=== PATIENT | male | born 1960 | race African-American/Black ===

== ENCOUNTER → 2019-11-19 | Outpatient (CLI) | payer OTHER ==
[2019-11-19 15:40] LABS: INR 1.1 (<1.2); Prothrombin Time 11.2 sec (9.0-12.0)
[2019-11-19 15:46] LABS: Albumin 4.5 g/dL (3.5-5.0); Calcium 10.1 mg/dL (8.4-10.2); Potassium 3.9 mmol/L (3.5-5.1); Total Bilirubin 0.7 mg/dL (0.2-1.3); Total Protein 7.9 g/dL (6.3-8.2)
[2019-11-19 15:47] LABS: Basophils # (A) 0.1 k/uL (0-0.2); Basophils % (A) 1 %; Eosinophils # (A) 0.2 k/uL (0-0.7); Eosinophils % (A) 3 %; HCT 52.7 % (39.0-53.0); HGB 16.8 gm/dL (13.0-17.5); Lymphocytes # (A) 2.2 k/uL (1.0-4.8); Lymphocytes % (A) 27 %; MCH 27.2 pg (25.0-35.0); MCHC 31.9 g/dL (31.0-37.0); MCV 85.4 fL (80.0-100.0); Mean Platelet Volume 8.8; Monocytes # (A) 0.6 k/uL (0-1.0); Monocytes % (A) 8 %; Neutrophils # (A) 4.9 k/uL (1.3-7.7); Neutrophils % (A) 60 %; Platelet Count 203 k/uL (150-450); RBC 6.16 m/uL (4.30-5.90); RDW 13.8 % (11.5-15.5); WBC 8.2 k/uL (3.8-10.6)
[2019-11-19 19:18] LABS: Alpha Fetoprotein, Tumor Mkr <2.5 ng/mL (0.0-7.9)
== END | disposition home or self-care (01) ==
LOC: RADMRIMAIN 14:05
PROVIDERS: ATTEND Nurse Practitioner
DX: B18.2 Chronic viral hepatitis C (principal)
CPT/HCPCS: 80053; 82105; 85025; 85610; 87522

== ENCOUNTER 2020-03-29 23:20 | Emergency (ER) | payer OTHER ==
[2020-03-29 23:26] VITALS: TEMP 97.8
--- NOTE | 2020-03-30 00:25 | XR ---
EXAMINATION TYPE: XR hand complete RT DATE OF EXAM: 03/30/2020 COMPARISON: NONE HISTORY: Laceration TECHNIQUE: 3 views FINDINGS: Metacarpals are intact. I see no fracture nor dislocation. There is no evidence of a foreig n body. There is spurring at the first carpometacarpal joint. 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 No fracture seen. No evidence of a foreign body.
[2020-03-30] MEDS ORDERED: CEPHALEXIN 500 MG CAP PO STA (00:35)
[2020-03-30] MEDS ORDERED: CEPHALEXIN 500MG STARTER PACK 4 CAP BTL PO STA (00:35)
--- NOTE | 2020-03-30 00:35 | ED ---
Wound/Laceration HPI - General Chief Complaint: Wound/Laceration Stated Complaint: Rt hand laceration Time Seen by Provider: 03/29/20 23:28 Source: patient, RN notes reviewed, old records reviewed Mode of arrival: ambulatory Limitations: no limitations - History of Present Illness Initial Comments: This is a 59-year-old male DF for evaluation presents today for evaluation regards to right hand laceration. Patient was cleaning a dish and glasses his glasses that he was cleaning broke. Patient sustained laceration to right index finger. Minimal bleeding originally the bleeding is now controlled and wrapped. Patient states tetanus is up-to-date and otherwise has no other complaints or injury states he can move the finger freely without difficulty -: hour(s) Extremity Location: Right: Hand Place: home Patient Tetanus UTD: Yes Context: accidental Associated Symptoms: none - Related Data Allergies Allergy/AdvReac Type Severity Reaction Status Date / Time No Known Allergies Allergy Verified 03/29/20 23:26 Review of Systems ROS Statement: Those systems with pertinent positive or pertinent negative responses have been documented in the HPI. ROS Other: All systems not noted in ROS Statement are negative. Past Medical History Past Medical History: Hypertension History of Any Multi-Drug Resistant Organisms: None Reported Past Surgical History: No Surgical Hx Reported Past Psychological History: Anxiety, Depression Smoking Status: Current every day smoker Past Alcohol Use History: Occasional Past Drug Use History: Marijuana General Exam - General Exam Comments Initial Comments: 1.5 cm laceration to right index finger no evidence of tendon injury Limitations: no limitations General appearance: alert, in no apparent distress Head exam: Present: atraumatic, normocephalic, normal inspection Eye exam: Present: normal appearance, PERRL, EOMI. Absent: scleral icterus, conjunctival injection, periorbital swelling ENT exam: Present: normal exam, mucous membranes moist Neck exam: Present: normal inspection. Absent: tenderness, meningismus, lymphadenopathy Respiratory exam: Present: normal lung sounds bilaterally. Absent: respiratory distress, wheezes, rales, rhonchi, stridor Cardiovascular Exam: Present: regular rate, normal rhythm, normal heart sounds. Absent: systolic murmur, diastolic murmur, rubs, gallop, clicks GI/Abdominal exam: Present: soft, normal bowel sounds. Absent: distended, tenderness, guarding, rebound, rigid Extremities exam: Present: normal inspection, full ROM, normal capillary refill. Absent: tenderness, pedal edema, joint swelling, calf tenderness Back exam: Present: normal inspection Neurological exam: Present: alert, oriented X3, CN II-XII intact Psychiatric exam: Present: normal affect, normal mood Skin exam: Present: warm, dry, intact, normal color. Absent: rash Course Vital Signs 03/29/20 23:23 Temperature 97.8 F Pulse Rate 76 Respiratory 18 Rate Blood Pressure 146/99 O2 Sat by Pulse 98 Oximetry - Reevaluation(s) Reevaluation #1: 03/30/20 00:45 Medical record is reviewed Reevaluation #2: 03/30/20 00:45 Laceration is repaired without difficulty Reevaluation #3: 03/30/20 00:45 Patient has no complaints, questions are answered Procedures - Laceration Laceration #1 Consent Obtained: verbal consent Indication: laceration Site: hand, other (Right index finger) Description: linear Depth: simple, single layer Anesthetic Used: lidocaine 1% Type of Sutures: nylon Size of Sutures: 5-0 Technique: simple, interrupted Patient Tolerated Procedure: well Medical Decision Making - Medical Decision Making 59 male DF for evaluation of right index finger laceration no evidence of tendon laceration, patient has laceration is repaired, can be discharged home - Radiology Data Radiology results: report reviewed (X-ray right hand is negative for acute injury or foreign body), image reviewed Disposition Clinical Impression: Laceration, Laceration of right index finger Disposition: ADMITTED IP TO [facility] Condition: Good Instructions (If sedation given, give patient instructions): Care For Your Stitches (ED), Laceration (ED) Is patient prescribed a controlled substance at d/c from ED?: No Referrals: Karthikeyan Hernandez MD [Primary Care Provider] - 1-2 days
[2020-03-30 00:59] VITALS: BP 141/92; PULSE 77; RESP 19
== END 2020-03-30 00:48 | disposition other institution (70) ==
LOC: EC 23:20
DX: S61.210A Laceration without foreign body of right index finger without damage to nail, initial encounter (principal); I10 Essential (primary) hypertension; F17.200 Nicotine dependence, unspecified, uncomplicated; W25.XXXA Contact with sharp glass, initial encounter; Y93.G1 Activity, food preparation and clean up; Y92.009 Unspecified place in unspecified non-institutional (private) residence as the place of occurrence of the external cause
CPT/HCPCS: 12001; 99283

== ENCOUNTER → 2021-03-06 | Outpatient (CLI) | payer OTHER ==
--- NOTE | 2021-03-06 07:45 | US ---
EXAMINATION TYPE: US liver DATE OF EXAM: 03/06/2021 COMPARISON: NONE CLINICAL HISTORY: K74.60. Pt states chronic Hep C EXAM MEASUREMENTS: Liver Length: 17.4 cm Gallbladder Wall: 0.2 cm CBD: 0.3 cm Right Kidney: 10.8 x 4.3 x 4.9 cm Pancreas: wnl, tail obscured by overlying bowel gas Liver: wnl Gallbladder: gallstone at dependent portion/fundus Evidence for sonographic Dudley's sign: No CBD: wnl Right Kidney: wnl Visualized pancreas within normal limits. Visualized liver shows no worrisome mass or ductal dilatati on. No surrounding ascites. Single mobile shadowing gallstone is present. No right-sided hydronephros is. IMPRESSION: No worrisome focal intrahepatic mass or intrahepatic ductal dilatation.
[2021-03-06 08:23] LABS: Basophils % (A) 1 %; Eosinophils # (A) 0.2 k/uL (0-0.7); Eosinophils % (A) 2 %; HCT 45.4 % (39.0-53.0); HGB 14.8 gm/dL (13.0-17.5); Lymphocytes # (A) 1.8 k/uL (1.0-4.8); Lymphocytes % (A) 29 %; MCH 27.9 pg (25.0-35.0); MCHC 32.5 g/dL (31.0-37.0); MCV 85.8 fL (80.0-100.0); Mean Platelet Volume 8.3; Monocytes # (A) 0.4 k/uL (0-1.0); Monocytes % (A) 7 %; Neutrophils # (A) 3.7 k/uL (1.3-7.7); Neutrophils % (A) 59 %; Platelet Count 204 k/uL (150-450); RBC 5.29 m/uL (4.30-5.90); RDW 13.5 % (11.5-15.5); WBC 6.3 k/uL (3.8-10.6)
[2021-03-06 08:39] LABS: Albumin 4.2 g/dL (3.5-5.0); Calcium 9.8 mg/dL (8.4-10.2); Potassium 4.3 mmol/L (3.5-5.1); Total Bilirubin 0.6 mg/dL (0.2-1.3); Total Protein 7.7 g/dL (6.3-8.2)
== END | disposition home or self-care (01) ==
LOC: RADUSWWP 07:08
PROVIDERS: ATTEND Internal Medicine Gastroenterology
DX: B18.2 Chronic viral hepatitis C (principal); K74.60 Unspecified cirrhosis of liver
CPT/HCPCS: 76705; 80053; 82105; 82677; 84702; 85025; 86336; 87522

== ENCOUNTER 2021-08-15 05:48 | Inpatient (IN) | payer MEDICAID, OTHER ==
[2021-08-15 06:49] LABS: Basophils # (A) 0.1 k/uL (0-0.2); Basophils % (A) 1 %; Eosinophils # (A) 0.2 k/uL (0-0.7); Eosinophils % (A) 4 %; HCT 43.5 % (39.0-53.0); HGB 13.4 gm/dL (13.0-17.5); Lymphocytes # (A) 1.8 k/uL (1.0-4.8); Lymphocytes % (A) 34 %; MCH 26.1 pg (25.0-35.0); MCHC 30.7 g/dL (31.0-37.0); MCV 84.9 fL (80.0-100.0); Monocytes # (A) 0.4 k/uL (0-1.0); Monocytes % (A) 7 %; Neutrophils # (A) 2.7 k/uL (1.3-7.7); Neutrophils % (A) 51 %; Platelet Count 177 k/uL (150-450); RBC 5.12 m/uL (4.30-5.90); RDW 13.9 % (11.5-15.5); WBC 5.3 k/uL (3.8-10.6)
[2021-08-15 07:27] LABS: Amphetamine Screen,Urine Not Detected (NotDetected); Barbiturate Screen,Urine Not Detected (NotDetected); Benzodiazepines Screen,Urine Not Detected (NotDetected); Cocaine Screen,Urine Not Detected (NotDetected); Methadone Screen, Urine Not Detected (NotDetected); Opiate Screen,Urine Not Detected (NotDetected); Oxycodone Screen, Urine Not Detected (NotDetected); Phencyclidine Screen,Urine Not Detected (NotDetected); Tricyclic Antidepressant,Urine Not Detected (NotDetected); Urn Cannabinoid Scrn Detected (NotDetected)
[2021-08-15 07:46] LABS: ALT 60 U/L (4-49); AST 41 U/L (17-59); African American GFR (CKD) 69 (>60 ml/min/1.73 sqM); Albumin 4.3 g/dL (3.5-5.0); Alcohol <10 mg/dL; Alkaline Phosphatase 120 U/L (38-126); Anion Gap 8 mmol/L; Blood Urea Nitrogen 17 mg/dL (9-20); Calcium 9.1 mg/dL (8.4-10.2); Carbon Dioxide 24 mmol/L (22-30); Chloride 103 mmol/L (98-107); Glucose 119 mg/dL (74-99); Non-African American GFR(CKD) 60 (>60 ml/min/1.73 sqM); Potassium 3.5 mmol/L (3.5-5.1); Sodium 135 mmol/L (137-145); Total Bilirubin 0.4 mg/dL (0.2-1.3); Total Protein 7.3 g/dL (6.3-8.2)
--- NOTE | 2021-08-15 08:36 | ED ---
Psych HPI - General Chief Complaint: Psychiatric Symptoms Stated Complaint: mental health Time Seen by Provider: 08/15/21 06:18 Source: patient, family, RN notes reviewed, old records reviewed Mode of arrival: ambulatory Limitations: no limitations - History of Present Illness Initial Comments: Patient is a 60-year-old male with history of hypertension, hyperlipidemia, chronic back pain, presenting to the emergency Department or a psychiatric evaluation. Patient states he feels like "the world would be better without him." Patient took 4 Suboxone and was about to take a handful of Valium but his stopped him. Patient states he has been under a lot of stress for the past month. Patient has a few superficial cuts on his wrist. No active bleeding. Patient denies any other complaints this chest pain or shortness of breath, no abdominal pain. Patient does drink occasional alcohol, admits to marijuana use, no other drug use. Patient's no further complaints. - Related Data Home Medications Medication Instructions Recorded Confirmed Ascorbic Acid [Vitamin C] 500 mg PO DAILY 08/15/21 08/15/21 Atorvastatin [Lipitor] 10 mg PO DAILY 08/15/21 08/15/21 Cholecalciferol [Vitamin D3 (25 50 mcg PO DAILY 08/15/21 08/15/21 Mcg = 1000 Iu)] DULoxetine HCL [Cymbalta] 60 mg PO DAILY 08/15/21 08/15/21 Gabapentin [Neurontin] 400 mg PO TID 08/15/21 08/15/21 Meloxicam 15 mg PO DAILY 08/15/21 08/15/21 Pantoprazole [Protonix] 40 mg PO DAILY 08/15/21 08/15/21 Tadalafil [Cialis] 20 mg PO DAILY 08/15/21 08/15/21 Valsartan/Hydrochlorothiazide 1 tab PO DAILY 08/15/21 08/15/21 [Valsartan-Hctz 160-25 mg Tab] Zinc Gluconate [Zinc] 50 mg PO DAILY 08/15/21 08/15/21 amLODIPine [Norvasc] 10 mg PO DAILY 08/15/21 08/15/21 atenoloL [Tenormin] 25 mg PO DAILY 08/15/21 08/15/21 methocarbamoL [Methocarbamol] 500 mg PO BID 08/15/21 08/15/21 Allergies Allergy/AdvReac Type Severity Reaction Status Date / Time No Known Allergies Allergy Verified 08/15/21 11:13 Review of Systems ROS Statement: Those systems with pertinent positive or pertinent negative responses have been documented in the HPI. ROS Other: All systems not noted in ROS Statement are negative. Past Medical History Past Medical History: Hypertension Additional Past Medical History / Comment(s): chronic back pain History of Any Multi-Drug Resistant Organisms: None Reported Past Surgical History: No Surgical Hx Reported Past Psychological History: Anxiety, Depression Smoking Status: Current every day smoker Past Alcohol Use History: Occasional Past Drug Use History: Marijuana General Exam - General Exam Comments Initial Comments: GENERAL: Patient is well-developed and well-nourished. Patient is nontoxic and in no acute distress, teary-eyed on exam. HEAD: Atraumatic, normocephalic. EYES: Pupils equal round and reactive to light, extraocular movements intact, sclera anicteric, conjunctiva are normal. Eyelids were unremarkable. ENT: Nares patent, oropharynx clear without exudates. Moist mucous membranes. NECK: Normal range of motion, supple without lymphadenopathy or JVD. LUNGS: Unlabored respirations. Breath sounds clear to auscultation bilaterally and equ al. No wheezes rales or rhonchi. HEART: Regular rate and rhythm without murmurs, rubs or gallops. ABDOMEN: Soft, nontender, normoactive bowel sounds. No guarding, no rebound. No masses appreciated. MUSCULOSKELETAL: Normal extremities with adequate strength and normal range of motion, no pitting or edema. No clubbing or cyanosis. NEUROLOGICAL: Patient is alert and oriented x 3. Symmetrical smile. Normal speech, normal gait. PSYCH: Patient is teary-eyed on exam, seems depressed, suicidal. SKIN: Warm, Dry, normal turgor, no rashes or lesions noted. Limitations: no limitations Course Vital Signs 08/15/21 06:01 Temperature 98.3 F Pulse Rate 77 Respiratory 20 Rate Blood Pressure 147/92 O2 Sat by Pulse 95 Oximetry Medical Decision Making - Medical Decision Making Patient is a 60-year-old male here for psychiatric evaluation. He took 4 Suboxone this morning and was going to take a handful of Valium before his stopped him. He is having suicidal thoughts. Patient will be evaluated by psych. Patient will be admitted to inpatient psych. Patient aware, EPS nurse did petition the patient. - Lab Data Result diagrams: 08/15/21 06:37 08/15/21 06:37 Lab Results 08/15/21 08/15/21 08/15/21 Range/Units 06:37 06:37 06:37 WBC 5.3 (3.8-10.6) k/uL RBC 5.12 (4.30-5.90) m/uL Hgb 13.4 (13.0-17.5) gm/dL Hct 43.5 (39.0-53.0) % MCV 84.9 (80.0-100.0) fL MCH 26.1 (25.0-35.0) pg MCHC 30.7 L (31.0-37.0) g/dL RDW 13.9 (11.5-15.5) % Plt Count 177 (150-450) k/uL MPV 8.0 Neutrophils % 51 % Lymphocytes % 34 % Monocytes % 7 % Eosinophils % 4 % Basophils % 1 % Neutrophils # 2.7 (1.3-7.7) k/uL Lymphocytes # 1.8 (1.0-4.8) k/uL Monocytes # 0.4 (0-1.0) k/uL Eosinophils # 0.2 (0-0.7) k/uL Basophils # 0.1 (0-0.2) k/uL Sodium 135 L (137-145) mmol/L Potassium 3.5 (3.5-5.1) mmol/L Chloride 103 (98-107) mmol/L Carbon Dioxide 24 (22-30) mmol/L Anion Gap 8 mmol/L BUN 17 (9-20) mg/dL Creatinine 1.31 H (0.66-1.25) mg/dL Est GFR (CKD-EPI)AfAm 69 (>60 ml/min/1.73 sqM) Est GFR (CKD-EPI)NonAf 60 (>60 ml/min/1.73 sqM) Glucose 119 H (74-99) mg/dL Calcium 9.1 (8.4-10.2) mg/dL Total Bilirubin 0.4 (0.2-1.3) mg/dL AST 41 (17-59) U/L ALT 60 H (4-49) U/L Alkaline Phosphatase 120 (38-126) U/L Total Protein 7.3 (6.3-8.2) g/dL Albumin 4.3 (3.5-5.0) g/dL Urine Opiates Screen Not Detected (NotDetected) Ur Oxycodone Screen Not Detected (NotDetected) Urine Methadone Screen Not Detected (NotDetected) Ur Propoxyphene Screen Not Detected (NotDetected) Ur Barbiturates Screen Not Detected (NotDetected) U Tricyclic Antidepress Not Detected (NotDetected) Ur Phencyclidine Scrn Not Detected (NotDetected) Ur Amphetamines Screen Not Detected (NotDetected) U Methamphetamines Scrn Detected H (NotDetected) U Benzodiazepines Scrn Not Detected (NotDetected) Urine Cocaine Screen Not Detected (NotDetected) U Marijuana (THC) Screen Detected H (NotDetected) Serum Alcohol <10 mg/dL Disposition Clinical Impression: Depression Disposition: TRANSFER TO PSYCH HOSP/UNIT Condition: Stable Referrals: Karthikeyan Hernandez MD [Primary Care Provider] - 1-2 days Decision Date: 08/15/21 Decision Time: 14:55
[2021-08-15] MEDS ORDERED: HALOPERIDOL LACTATE 5 MG/ML 1 ML VIAL IM PRN (18:33)
[2021-08-15] MEDS ORDERED: ACETAMINOPHEN TAB 325 MG TAB PO PRN (18:33)
[2021-08-15] MEDS ORDERED: MAG HYDROX/AL HYDROX/SIMETH 30 ML CUP PO PRN (18:33)
[2021-08-15] MEDS ORDERED: MAGNESIUM HYDROXIDE 2,400 MG/10 ML CUP PO PRN (18:33)
[2021-08-15] MEDS: methocarbamoL 500 MG TAB PO SCH (21:09)
[2021-08-15] MEDS: GABAPENTIN 400 MG CAP PO SCH (21:09)
[2021-08-16] MEDS: NICOTINE 14MG/24HR PATCH TRANSDERM SCH (08:19)
[2021-08-16] MEDS: ZINC SULFATE 220 MG CAP PO SCH (08:20)
[2021-08-16] MEDS: CHOLECALCIFEROL 25 MCG (1000 IU) TABLET PO SCH (08:20)
[2021-08-16] MEDS: amLODIPine 10 MG TAB PO SCH (08:20)
[2021-08-16] MEDS: atenoloL 25 MG TAB PO SCH (08:20)
[2021-08-16] MEDS: MELOXICAM 7.5 MG TAB PO SCH (08:20)
[2021-08-16] MEDS: ASCORBIC ACID 500 MG TAB PO SCH (08:20)
[2021-08-16] MEDS: ATORVASTATIN 10 MG TAB PO SCH (08:20)
[2021-08-16] MEDS: methocarbamoL 500 MG TAB PO SCH ×2 (08:20→20:54)
[2021-08-16] MEDS: VALSARTAN 160 MG TAB PO SCH (08:20)
[2021-08-16] MEDS: PANTOPRAZOLE 40 MG TABLET PO SCH (08:20)
[2021-08-16] MEDS: GABAPENTIN 400 MG CAP PO SCH ×3 (08:21→20:54)
[2021-08-16] MEDS: hydroCHLOROthiazide 25 MG TAB PO SCH (08:21)
[2021-08-16 08:33] LABS: Basophils % (A) 0 %; Eosinophils # (A) 0.2 k/uL (0-0.7); Eosinophils % (A) 4 %; HCT 45.5 % (39.0-53.0); HGB 14.5 gm/dL (13.0-17.5); Lymphocytes # (A) 2.1 k/uL (1.0-4.8); Lymphocytes % (A) 37 %; MCH 27.1 pg (25.0-35.0); MCHC 31.9 g/dL (31.0-37.0); Mean Platelet Volume 8.2; Monocytes # (A) 0.3 k/uL (0-1.0); Monocytes % (A) 6 %; Neutrophils # (A) 2.8 k/uL (1.3-7.7); Neutrophils % (A) 50 %; Platelet Count 182 k/uL (150-450); RBC 5.36 m/uL (4.30-5.90); RDW 14.1 % (11.5-15.5); WBC 5.7 k/uL (3.8-10.6)
[2021-08-16 08:45] LABS: ALT 51 U/L (4-49); AST 33 U/L (17-59); African American GFR (CKD) 76 (>60 ml/min/1.73 sqM); Albumin 4.3 g/dL (3.5-5.0); Alkaline Phosphatase 133 U/L (38-126); Anion Gap 6 mmol/L; Bilirubin,Unconjugated 0.8 mg/dL (0.0-1.1); Blood Urea Nitrogen 14 mg/dL (9-20); Calcium 9.5 mg/dL (8.4-10.2); Carbon Dioxide 28 mmol/L (22-30); Chloride 104 mmol/L (98-107); Glucose 94 mg/dL (74-99); Non-African American GFR(CKD) 66 (>60 ml/min/1.73 sqM); Potassium 4.3 mmol/L (3.5-5.1); Sodium 138 mmol/L (137-145); Total Bilirubin 0.8 mg/dL (0.2-1.3); Total Protein 7.4 g/dL (6.3-8.2)
[2021-08-16] MEDS ORDERED: NON FORMULARY DRUG (Valsartan/Hydrochlorothiazide [Valsartan-Hctz 160-25 Mg Tab] 1 EACH Ta PO SCH (09:00)
[2021-08-16] MEDS ORDERED: DULoxetine HCL 60 MG CAPSULE.DR PO SCH (09:00)
[2021-08-16] MEDS: TADALAFIL 20 MG PO SCH (09:10)
--- NOTE | 2021-08-16 11:13 | P.MDCNMH ---
History of Present Illness H&P Date: 08/16/21 HISTORY OF PRESENT ILLNESS This is a 60-year-old male patient of Dr. Hernandez with past medical history of hypertension hyperlipidemia, chronic back pain, depression and generalized anxiety disorder, gastroesophageal reflux disease. 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 He took some medications that he was about to take some more and his intervened and called 911 and patient was brought into [facility] emergency center for evaluation. He has never been on a mental health unit in the past. He does have a history of depression but no suicidal ideation in the past and follows with [facility]. Patient was found to be afebrile, heart rate 77, blood pressure 147/92, pulse ox 95% on room air. CBC was unremarkable. Sodium 135 and creatinine 1.31 otherwise electrolytes were normal. Glucose 119. Patient does not have a history of diabetes. ALT 60 otherwise liver function tests were all within normal limits. TSH 2.66. Urinalysis was positive for methamphetamines and marijuana. Rotavirus PCR not detected. Patient admits that he smokes marijuana but denies any other drug use. REVIEW OF SYSTEMS Constitutional: No fever, no chills, no night sweats. No weight change. No weakness, fatigue or lethargy. No daytime sleepiness. EENT: No headache. No blurred vision or double vision, no loss of vision. No loss of Hearing, no ringing in the ears, no dizziness. No nasal drainage or congestion. No epistaxis. No sore throat. Lungs: No shortness of breath, cough, no sputum production. No wheezing. Cardiovascular: No chest pain, no lower extremity edema. No palpitations. No paroxysmal nocturnal dyspnea. No orthopnea. No lightheadedness or dizziness. No syncopal episodes. Abdominal: No abdominal pain. No nausea, vomiting. No diarrhea. No constipation. No bloody or tarry stools. No loss of appetite. Genitourinary: No dysuria, increased frequency, urgency. No urinary retention. Musculoskeletal: No myalgias. No muscle weakness, no gait dysfunction, no frequent falls. No back pain. No neck pain. Integumentary: No wounds, no lesions. No rash or pruritus. No unusual bruising. No change in hair or nails. Neurologic: No aphasia. No facial droop. No change in mentation. No head injury. No headache. No paralysis. No paresthesia. Psychiatric: Reports depression. No anxiety. No mood swings. Endocrine: No abnormal blood sugars. No weight change. No excessive sweating or thirst. No cold intolerance. SOCIAL HISTORY Patient is a smoker of one pack per day for 35 years. He states he drinks al cohol 2-3 times per week. He smokes marijuana "every chance that he gets." FAMILY HISTORY Mother at age 58 with history of breast cancer and CVA. Father is but he does not know his father. Patient has 6/2 brothers and sisters and does not know their medical history and is not in contact with them. He has one 20-year-old child with no major medical problems. His is currently . PHYSICAL EXAMINATION Gen: This is a 60-year-old black male appears to be in no acute distress. HEENT: Head is atraumatic, normocephalic. Pupils equal, round. Sclerae is anicteric. NECK: Supple. No JVD. No lymphadenopathy. No thyromegaly. LUNGS: Clear to auscultation. No wheezes or rhonchi. No intercostal retractions. HEART: Regular rate and rhythm. No murmur. ABDOMEN: Soft. Bowel sounds are present. No masses. No tenderness. EXTREMITIES: No pedal edema. No calf tenderness. NEUROLOGICAL: Patient is awake, alert and oriented x3. Cranial nerves 2 through 12 are grossly intact. ASSESSMENT AND PLAN 1. Depression with suicidal ideation and plan. Patient admitted to the mental health unit, continue current plan per psychiatry. 2. Hypertension. Continue amlodipine 10 mg daily, atenolol 25 mg daily, hydrochlorothiazide 25 mg daily, valsartan 160 mg daily. Monitor blood pressure closely, adjustments may need to be made. 3. Hyperlipidemia. Continue atorvastatin 10 mg daily. 4. Chronic back pain. Continue Tylenol as needed. 5. Gastroesophageal reflux disease. Continue Protonix 40 mg daily. 6. Tobacco use and dependence. Nicotine patch. DISCHARGE PLAN Home. Impression and plan of care have been directed as dictated by the signing physician. Desiree Cortés nurse practitioner acting as scribe for signing physician. Past Medical History Past Medical History: Hypertension Additional Past Medical History / Comment(s): chronic back pain History of Any Multi-Drug Resistant Organisms: None Reported Past Surgical History: No Surgical Hx Reported Past Psychological History: Anxiety, Depression Smoking Status: Current every day smoker Past Alcohol Use History: Occasional Past Drug Use History: Marijuana Medications and Allergies Home Medications Medication Instructions Recorded Confirmed Type Ascorbic Acid [Vitamin C] 500 mg PO DAILY 08/15/21 08/15/21 History Atorvastatin [Lipitor] 10 mg PO DAILY 08/15/21 08/15/21 History Cholecalciferol [Vitamin D3 (25 50 mcg PO DAILY 08/15/21 08/15/21 History Mcg = 1000 Iu)] DULoxetine HCL [Cymbalta] 60 mg PO DAILY 08/15/21 08/15/21 History Gabapentin [Neurontin] 400 mg PO TID 08/15/21 08/15/21 History Meloxicam 15 mg PO DAILY 08/15/21 08/15/21 History Pantoprazole [Protonix] 40 mg PO DAILY 08/15/21 08/15/21 History Tadalafil [Cialis] 20 mg PO DAILY 08/15/21 08/15/21 History Valsartan/Hydrochlorothiazide 1 tab PO DAILY 08/15/21 08/15/21 History [Valsartan-Hctz 160-25 mg Tab] Zinc Gluconate [Zinc] 50 mg PO DAILY 08/15/21 08/15/21 History amLODIPine [Norvasc] 10 mg PO DAILY 08/15/21 08/15/21 History atenoloL [Tenormin] 25 mg PO DAILY 08/15/21 08/15/21 History methocarbamoL [Methocarbamol] 500 mg PO BID 08/15/21 08/15/21 History Allergies Allergy/AdvReac Type Severity Reaction Status Date / Time No Known Allergies Allergy Verified 08/15/21 11:13 Physical Exam Vitals: Vital Signs Temp Pulse Pulse Resp BP BP Pulse Ox 08/16/21 06:57 97.4 F L 70 18 152/90 08/15/21 18:54 98.1 F 79 20 135/85 08/15/21 18:39 97.8 F 74 20 146/78 97 Cranial Nerve Examination - Cranial Nerves Cranial Nerve I- Olfactory: Intact Cranial Nerve II- Optic: Intact Cranial Nerve III- Oculomotor: Intact Cranial Nerve IV- Trochlear: Intact Cranial Nerve V- Trigeminal: Intact Cranial Nerve - Abducens: Intact Cranial Nerve VII- Facial: Intact Cranial Nerve VIII- Auditory: Intact Cranial Nerve IX- Glossopharyngeal: Intact Cranial Nerve X- Vagus: Intact Cranial Nerve XI- Accessory: Intact Cranial Nerve XII- Hypoglossal: Intact Results CBC & Chem 7: 08/16/21 07:38 08/16/21 07:38
[2021-08-16 11:21] LABS: Appearance,Urine Clear (Clear); Bilirubin,Urine Negative (Negative); Blood,Urine Negative (Negative); Color,Urine Yellow; Glucose,Urine (UA) Negative (Negative); Ketones,Urine Negative (Negative); Leukocyte Esterase,Urine Moderate (Negative); Mucus,Urine Occasional /hpf; Nitrite,Urine Negative (Negative); PH, Urine 6.5 (5.0-8.0); Protein,Urine 1+ (Negative); RBC,Urine 8 /hpf (0-5); Specific Gravity,Urine 1.023 (1.001-1.035); Squamous Epithelial Cell,Urine <1 /hpf (0-4); WBC,Urine 25 /hpf (0-5)
[2021-08-16] MEDS ORDERED: traZODone HCL 50 MG TAB PO PRN (11:44)
--- NOTE | 2021-08-16 13:04 | P.HP ---
Psychiatric H&P - . H&P Date: 08/16/21 History & Physical: Allergies Allergy/AdvReac Type Severity Reaction Status Date / Time No Known Allergies Allergy Verified 08/15/21 11:13 Vital Signs Temp 97.4 F L 08/16/21 06:57 Pulse 70 08/16/21 06:57 Resp 18 08/16/21 06:57 BP 152/90 08/16/21 06:57 Pulse Ox 97 08/15/21 18:39 FiO2 Laboratory Last Values WBC 5.7 k/uL (3.8-10.6) 08/16/21 07:38 RBC 5.36 m/uL (4.30-5.90) 08/16/21 07:38 Hgb 14.5 gm/dL (13.0-17.5) 08/16/21 07:38 Hct 45.5 % (39.0-53.0) 08/16/21 07:38 MCV 85.0 fL (80.0-100.0) 08/16/21 07:38 MCH 27.1 pg (25.0-35.0) 08/16/21 07:38 MCHC 31.9 g/dL (31.0-37.0) 08/16/21 07:38 RDW 14.1 % (11.5-15.5) 08/16/21 07:38 Plt Count 182 k/uL (150-450) 08/16/21 07:38 MPV 8.2 08/16/21 07:38 Neutrophils % 50 % 08/16/21 07:38 Lymphocytes % 37 % 08/16/21 07:38 Monocytes % 6 % 08/16/21 07:38 Eosinophils % 4 % 08/16/21 07:38 Basophils % 0 % 08/16/21 07:38 Neutrophils # 2.8 k/uL (1.3-7.7) 08/16/21 07:38 Lymphocytes # 2.1 k/uL (1.0-4.8) 08/16/21 07:38 Monocytes # 0.3 k/uL (0-1.0) 08/16/21 07:38 Eosinophils # 0.2 k/uL (0-0.7) 08/16/21 07:38 Basophils # 0.0 k/uL (0-0.2) 08/16/21 07:38 Sodium 138 mmol/L (137-145) 08/16/21 07:38 Potassium 4.3 mmol/L (3.5-5.1) 08/16/21 07:38 Chloride 104 mmol/L (98-107) 08/16/21 07:38 Carbon Dioxide 28 mmol/L (22-30) 08/16/21 07:38 Anion Gap 6 mmol/L 08/16/21 07:38 BUN 14 mg/dL (9-20) 08/16/21 07:38 Creatinine 1.21 mg/dL (0.66-1.25) 08/16/21 07:38 Est GFR (CKD-EPI)AfAm 76 (>60 ml/min/1.73 sqM) 08/16/21 07:38 Est GFR (CKD-EPI)NonAf 66 (>60 ml/min/1.73 sqM) 08/16/21 07:38 Glucose 94 mg/dL (74-99) 08/16/21 07:38 Calcium 9.5 mg/dL (8.4-10.2) 08/16/21 07:38 Total Bilirubin 0.8 mg/dL (0.2-1.3) 08/16/21 07:38 Conjugated Bilirubin 0.0 mg/dL (0.0-0.3) 08/16/21 07:38 Unconjugated Bilirubin 0.8 mg/dL (0.0-1.1) 08/16/21 07:38 Delta Bilirubin 0.0 mg/dL (0.0-0.2) 08/16/21 07:38 AST 33 U/L (17-59) 08/16/21 07:38 ALT 51 U/L (4-49) H 08/16/21 07:38 Alkaline Phosphatase 133 U/L (38-126) H 08/16/21 07:38 Total Protein 7.4 g/dL (6.3-8.2) 08/16/21 07:38 Albumin 4.3 g/dL (3.5-5.0) 08/16/21 07:38 TSH 2.660 mIU/L (0.465-4.680) 08/16/21 07:38 Urine Color Yellow 08/16/21 10:55 Urine Appearance Clear (Clear) 08/16/21 10:55 Urine pH 6.5 (5.0-8.0) 08/16/21 10:55 Ur Specific [place] 1.023 (1.001-1.035) 08/16/21 10:55 Urine Protein 1+ (Negative) H 08/16/21 10:55 Urine Glucose (UA) Negative (Negative) 08/16/21 10:55 Urine Ketones Negative (Negative) 08/16/21 10:55 Urine Blood Negative (Negative) 08/16/21 10:55 Urine Nitrite Negative (Negative) 08/16/21 10:55 Urine Bilirubin Negative (Negative) 08/16/21 10:55 Urine Urobilinogen 3.0 mg/dL (<2.0) 08/16/21 10:55 Ur Leukocyte Esterase Moderate (Negative) H 08/16/21 10:55 Urine RBC 8 /hpf (0-5) H 08/16/21 10:55 Urine WBC 25 /hpf (0-5) H 08/16/21 10:55 Ur Squamous Epith Cells <1 /hpf (0-4) 08/16/21 10:55 Urine Mucus Occasional /hpf (None) H 08/16/21 10:55 Urine Opiates Screen Not Detected (NotDetected) 08/15/21 06:37 Ur Oxycodone Screen Not Detected (NotDetected) 08/15/21 06:37 Urine Methadone Screen Not Detected (NotDetected) 08/15/21 06:37 Ur Propoxyphene Screen Not Detected (NotDetected) 08/15/21 06:37 Ur Barbiturates Screen Not Detected (NotDetected) 08/15/21 06:37 U Tricyclic Antidepress Not Detected (NotDetected) 08/15/21 06:37 Ur Phencyclidine Scrn Not Detected (NotDetected) 08/15/21 06:37 Ur Amphetamines Screen Not Detected (NotDetected) 08/15/21 06:37 U Methamphetamines Scrn Detected (NotDetected) H 08/15/21 06:37 U Benzodiazepines Scrn Not Detected (NotDetected) 08/15/21 06:37 Urine Cocaine Screen Not Detected (NotDetected) 08/15/21 06:37 U Marijuana (THC) Screen Detected (NotDetected) H 08/15/21 06:37 Serum Alcohol <10 mg/dL 08/15/21 06:37 Coronavirus (PCR) Not Detected (Not Detectd) 08/15/21 14:43 08/16/21 11:29 IDENTIFYING DATA: Patient is a 60-year-old male, who currently lives with his and 1 daughter in an apartment. He collects SSD. HPI: Patient presented to the hospital yesterday for a psychiatric evaluation. Patient claims that he has been having increase in his depression and suicidal ideation lately when he came into the ER. He has stated that he took 3 Suboxone films and overdose attempt and also had a handful of Valium to overdose on however his stopped him. He states that he's been having a lot of stress lately. Patient was admitted to the mental health unit on a petition and certificate. The decision was filled out by the EPS nurse. Patient was seen by sports book writer today and was agreeable to speak in the office. Patient is attempting to cooperate and appeared to have a depressed affect. He states that he was feeling depressed" stressed out" lately. His UDS was positive for methamphetamine and THC. Patient claims that "a lot of stuff has been happening to me" and claims that his is now . He states that "have to leave her for a bit" and states that [facility] more than a year. He states that his sentencing is coming up in August and he is being charged for drug related charges. He claims that he has been also dealing with health and pain issues. He claims that he did try to kill himself and he wanted to "go to sleep and not wake up". He claims that he has been having fair sleep however poor appetite. He is endorsing depression at this time and anxiety. Patient denies any suicidal or homicidal ideations intent or plan. At this time patient denies any auditory or visual hallucinations. Patient denies any flight of ideas racing thoughts and increased in goal directed behavior. Patient admits to using cigarettes daily, marijuana daily, alcohol occasionally, no other recreational drug use. PAST PSYCHIATRIC HISTORY: Patient states that he has a history of depression and anxiety. Patient is currently on Cymbalta 60 mg daily for mood. Patient denies any previous psychiatric hospitalizations. Patient claims that he goes to [facility] to see a counselor named Michelle. Patient denies any history of suicide attempts in the past. Past Medical History: Hypertension Additional Past Medical History / Comment(s): chronic back pain ALLERGIES: as per EMR CHEMICAL DEPENDENCY HISTORY: as per HPI FAMILY PSYCHIATRIC/SUBSTANCE USE HISTORY: denies SOCIAL HISTORY: Patient was born and raised in [place] and moved to [place] when he was 14 years old. He states that he did some college and high school was completed. 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 He states that now he is on SSD and currently lives with his and 1 daughter in an apartment. He states that he has been [facility] twice in the past one for drug-related charges and received a felony and also second one for carrying a gun and having a felony. MENTAL STATUS EXAM: General Appearance: Patient appears to be stated age is alert, directable, and attempts to cooperate. Patient appears to have fair hygiene and grooming. Behavior: Patient is seated without any agitated behavior. Constricted at times. Speech: Patient's speech is fluent and nonpressured. [place] Mood/Affect: Patient reports their mood is depressed and anxious, affect is congruent and constricted. Suicidality/Homicidality: Patient denies having any homicidal ideation intent or plan. Denies any suicidal ideations intent or plan Perceptions: Patient denies any visual hallucinations and denies any auditory hallucinations Though content/process: There is no evidence of any delusional thought content and thought process is linear and goal-directed. Catastrophizing. Memory and concentration: AOX3, grossly intact for the purposes of this session. Can spell "WORLD" backwards Judgment and insight: poor STRENGTHS/WEAKNESSES: strength is that patient is resilient. Weakness is that patient has poor judgment and is impulsive INTELLECT: average IMPRESSIONS: Major depressive disorder, recurrent, severe Overdose of medications Generalized anxiety disorder Cannabis use disorder mild Nicotine dependence PLAN: -Patient is admitted under voluntary status to MHU for stabilization of psychiatric symptoms and safety. Patient has signed adult voluntary form and medication consent and is placed in patient's chart. -Medications : Will start patient on Cymbalta and increased her dose of 90 mg daily at bedtime for mood/anxiety/pain. I added trazodone 50 mg daily at bedt sharita when necessary for sleep. -Ativan and Haldol PRN for agitation/aggression -Patient was counselled on substance abuse and desired to cut back on use -Patient was informed of the risks, benefits and side effects of the medication and patient verbally consented to taking the medications. Patient signed med consent form and was placed in chart. -Internal Medicine consult to perform medical evaluation and physical. -NRT - nicotine patch -SW on board for discharge planning. Encourage patient to participate in groups to work on coping skills. 08/16/21 12:58
[2021-08-16 14:46] LABS: Chol/HDL Ratio 3.66 Ratio; LDL Cholesterol,Calculated 78.4 mg/dL (0.0-131.0)
[2021-08-16] MEDS: DULoxetine HCL 30 MG CAPSULE.DR PO SCH (20:54)
[2021-08-17 07:06] VITALS: RESP 16; TEMP 98.2
[2021-08-17] MEDS: NICOTINE 14MG/24HR PATCH TRANSDERM SCH (08:17)
[2021-08-17] MEDS: ASCORBIC ACID 500 MG TAB PO SCH (08:18)
[2021-08-17] MEDS: CHOLECALCIFEROL 25 MCG (1000 IU) TABLET PO SCH (08:18)
[2021-08-17] MEDS: ATORVASTATIN 10 MG TAB PO SCH (08:18)
[2021-08-17] MEDS: PANTOPRAZOLE 40 MG TABLET PO SCH (08:18)
[2021-08-17] MEDS: TADALAFIL 20 MG PO SCH (08:18)
[2021-08-17] MEDS: MELOXICAM 7.5 MG TAB PO SCH (08:18)
[2021-08-17] MEDS: atenoloL 25 MG TAB PO SCH (08:19)
[2021-08-17] MEDS: GABAPENTIN 400 MG CAP PO SCH ×3 (08:19→21:29)
[2021-08-17] MEDS: amLODIPine 10 MG TAB PO SCH (08:19)
[2021-08-17] MEDS: hydroCHLOROthiazide 25 MG TAB PO SCH (08:19)
[2021-08-17] MEDS: methocarbamoL 500 MG TAB PO SCH ×2 (08:19→21:30)
[2021-08-17] MEDS: VALSARTAN 160 MG TAB PO SCH (08:19)
[2021-08-17] MEDS: ZINC SULFATE 220 MG CAP PO SCH (08:19)
--- NOTE | 2021-08-17 09:58 | P.PN ---
Progress Note - Text Progress Note Date: 08/17/21 Interval History: Patient was seen lying in his bed this morning and was directable and agreeable to speak with news writer in the office. Patient claims that he is doing better today in terms of his mood and anxiety. He states that "I needed time" and spoke about reflecting back on what had happened. He spoke about needing to be there for his and his child. He states that his came to visit him yesterday and they spoke regarding their future plans. He states he is feeling more positive today and he has been going to groups. He claims that he was able to sleep fairly well yesterday with the trazodone. He claims that his appetite is fair. At this time patient denies any suicidal or homical ideations, intent or plan. Patient denies any auditory, visual hallucinations and denies any paranoia or delusions. Patient denies any side effects from the medications and has been compliant with meds. Mental Status Exam: General Appearance: Patient appears to be stated age is alert, directable, and attempts to cooperate. Patient appears to have fair hygiene and grooming. Behavior: Patient is seated without any agitated behavior. Constricted at times. Speech: Patient's speech is fluent and nonpressured. [place] Mood/Affect: Patient reports their mood is improving mildly, affect is congruent Suicidality/Homicidality: Patient denies having any homicidal ideation intent or plan. Denies any suicidal ideations intent or plan Perceptions: Patient denies any visual hallucinations and denies any auditory hallucinations Though content/process: There is no evidence of any delusional thought content and thought process is linear and goal-directed. Her future oriented Memory and concentration: AOX3, grossly intact for the purposes of this session Judgment and insight: Improving mildly Assessment Major depressive disorder, recurrent, severe Overdose of medications Generalized anxiety disorder Cannabis use disorder mild Nicotine dependence Plan: -Patient continues to meet criteria for inpatient psychiatric admission for symptom stabilization and safety. Patient has signed adult voluntary form and medication consent and was placed in patient's chart. -Medications: Continue with Cymbalta 90 mg daily at bedtime for mood/anxiety/pain, switch trazodone 50 mg daily at bedtime scheduled for sleep. -When necessary Ativan and Haldol for agitation/aggression. -NRT - nicotine patch -SW on board for discharge planning. Encouraged the patient to participate in milieu. likely discharge tomorrow back home.
[2021-08-17] MEDS ORDERED: traZODone HCL 50 MG TAB PO SCH (21:00)
[2021-08-17] MEDS: DULoxetine HCL 30 MG CAPSULE.DR PO SCH (21:29)
[2021-08-18] MEDS: ASCORBIC ACID 500 MG TAB PO SCH (08:29)
[2021-08-18] MEDS: amLODIPine 10 MG TAB PO SCH (08:29)
[2021-08-18] MEDS: ATORVASTATIN 10 MG TAB PO SCH (08:30)
[2021-08-18] MEDS: atenoloL 25 MG TAB PO SCH (08:30)
[2021-08-18] MEDS: GABAPENTIN 400 MG CAP PO SCH (08:30)
[2021-08-18] MEDS: MELOXICAM 7.5 MG TAB PO SCH (08:30)
[2021-08-18] MEDS: CHOLECALCIFEROL 25 MCG (1000 IU) TABLET PO SCH (08:30)
[2021-08-18] MEDS: hydroCHLOROthiazide 25 MG TAB PO SCH (08:30)
[2021-08-18] MEDS: NICOTINE 14MG/24HR PATCH TRANSDERM SCH (08:31)
[2021-08-18] MEDS: PANTOPRAZOLE 40 MG TABLET PO SCH (08:31)
[2021-08-18] MEDS: methocarbamoL 500 MG TAB PO SCH (08:31)
[2021-08-18] MEDS: ZINC SULFATE 220 MG CAP PO SCH (08:32)
[2021-08-18] MEDS: VALSARTAN 160 MG TAB PO SCH (08:32)
[2021-08-18] MEDS: TADALAFIL 20 MG PO SCH (08:32)
[2021-08-18 08:34] VITALS: BP 134/99; PULSE 79
--- NOTE | 2021-08-18 14:58 | P.DS ---
Providers Date of admission: 08/15/21 18:23 08/15/2021 Expected date of discharge: 08/18/21 Attending physician: German Fisher MD Consults: 08/15/21 18:33 Consult Physician Routine Consulting Provider: Karthikeyan Hernandez Consult Reason/Comments: Medical H & P Do you want consulting provider notified?: Yes Primary care physician: Karthikeyan Hernandez [facility] Course: 08/18/2021: I evaluated patient today and he is alert and oriented x 3. He denies SI/HI, intent or plan. No AVH. He reports good mood, feels "optimistic" and feels ready for discharge. He denies any concerns. He will have his girlfriend pick him up and he feels safe at home. He denies access to guns or weapons. Patient was [facility] and was started on Cymbalta 90 mg daily for mood/anxiety/pain and started on Trazodone 50 mg QHS PRN for sleep. Allergies Allergy/AdvReac Type Severity Reaction Status Date / Time No Known Allergies Allergy Verified 08/15/21 11:13 Vital Signs Temp 97.4 F L 08/16/21 06:57 Pulse 70 08/16/21 06:57 Resp 18 08/16/21 06:57 BP 152/90 08/16/21 06:57 Pulse Ox 97 08/15/21 18:39 FiO2 Laboratory Last Values WBC 5.7 k/uL (3.8-10.6) 08/16/21 07:38 RBC 5.36 m/uL (4.30-5.90) 08/16/21 07:38 Hgb 14.5 gm/dL (13.0-17.5) 08/16/21 07:38 Hct 45.5 % (39.0-53.0) 08/16/21 07:38 MCV 85.0 fL (80.0-100.0) 08/16/21 07:38 MCH 27.1 pg (25.0-35.0) 08/16/21 07:38 MCHC 31.9 g/dL (31.0-37.0) 08/16/21 07:38 RDW 14.1 % (11.5-15.5) 08/16/21 07:38 Plt Count 182 k/uL (150-450) 08/16/21 07:38 MPV 8.2 08/16/21 07:38 Neutrophils % 50 % 08/16/21 07:38 Lymphocytes % 37 % 08/16/21 07:38 Monocytes % 6 % 08/16/21 07:38 Eosinophils % 4 % 08/16/21 07:38 Basophils % 0 % 08/16/21 07:38 Neutrophils # 2.8 k/uL (1.3-7.7) 08/16/21 07:38 Lymphocytes # 2.1 k/uL (1.0-4.8) 08/16/21 07:38 Monocytes # 0.3 k/uL (0-1.0) 08/16/21 07:38 Eosinophils # 0.2 k/uL (0-0.7) 08/16/21 07:38 Basophils # 0.0 k/uL (0-0.2) 08/16/21 07:38 Sodium 138 mmol/L (137-145) 08/16/21 07:38 Potassium 4.3 mmol/L (3.5-5.1) 08/16/21 07:38 Chloride 104 mmol/L (98-107) 08/16/21 07:38 Carbon Dioxide 28 mmol/L (22-30) 08/16/21 07:38 Anion Gap 6 mmol/L 08/16/21 07:38 BUN 14 mg/dL (9-20) 08/16/21 07:38 Creatinine 1.21 mg/dL (0.66-1.25) 08/16/21 07:38 Est GFR (CKD-EPI)AfAm 76 (>60 ml/min/1.73 sqM) 08/16/21 07:38 Est GFR (CKD-EPI)NonAf 66 (>60 ml/min/1.73 sqM) 08/16/21 07:38 Glucose 94 mg/dL (74-99) 08/16/21 07:38 Calcium 9.5 mg/dL (8.4-10.2) 08/16/21 07:38 Total Bilirubin 0.8 mg/dL (0.2-1.3) 08/16/21 07:38 Conjugated Bilirubin 0.0 mg/dL (0.0-0.3) 08/16/21 07:38 Unconjugated Bilirubin 0.8 mg/dL (0.0-1.1) 08/16/21 07:38 Delta Bilirubin 0.0 mg/dL (0.0-0.2) 08/16/21 07:38 AST 33 U/L (17-59) 08/16/21 07:38 ALT 51 U/L (4-49) H 08/16/21 07:38 Alkaline Phosphatase 133 U/L (38-126) H 08/16/21 07:38 Total Protein 7.4 g/dL (6.3-8.2) 08/16/21 07:38 Albumin 4.3 g/dL (3.5-5.0) 08/16/21 07:38 TSH 2.660 mIU/L (0.465-4.680) 08/16/21 07:38 Urine Color Yellow 08/16/21 10:55 Urine Appearance Clear (Clear) 08/16/21 10:55 Urine pH 6.5 (5.0-8.0) 08/16/21 10:55 Ur Specific [place] 1.023 (1.001-1.035) 08/16/21 10:55 Urine Protein 1+ (Negative) H 08/16/21 10:55 Urine Glucose (UA) Negative (Negative) 08/16/21 10:55 Urine Ketones Negative (Negative) 08/16/21 10:55 Urine Blood Negative (Negative) 08/16/21 10:55 Urine Nitrite Negative (Negative) 08/16/21 10:55 Urine Bilirubin Negative (Negative) 08/16/21 10:55 Urine Urobilinogen 3.0 mg/dL (<2.0) 08/16/21 10:55 Ur Leukocyte Esterase Moderate (Negative) H 08/16/21 10:55 Urine RBC 8 /hpf (0-5) H 08/16/21 10:55 Urine WBC 25 /hpf (0-5) H 08/16/21 10:55 Ur Squamous Epith Cells <1 /hpf (0-4) 08/16/21 10:55 Urine Mucus Occasional /hpf (None) H 08/16/21 10:55 Urine Opiates Screen Not Detected (NotDetected) 08/15/21 06:37 Ur Oxycodone Screen Not Detected (NotDetected) 08/15/21 06:37 Urine Methadone Screen Not Detected (NotDetected) 08/15/21 06:37 Ur Propoxyphene Screen Not Detected (NotDetected) 08/15/21 06:37 Ur Barbiturates Screen Not Detected (NotDetected) 08/15/21 06:37 U Tricyclic Antidepress Not Detected (NotDetected) 08/15/21 06:37 Ur Phencyclidine Scrn Not Detected (NotDetected) 08/15/21 06:37 Ur Amphetamines Screen Not Detected (NotDetected) 08/15/21 06:37 U Methamphetamines Scrn Detected (NotDetected) H 08/15/21 06:37 U Benzodiazepines Scrn Not Detected (NotDetected) 08/15/21 06:37 Urine Cocaine Screen Not Detected (NotDetected) 08/15/21 06:37 U Marijuana (THC) Screen Detected (NotDetected) H 08/15/21 06:37 Serum Alcohol <10 mg/dL 08/15/21 06:37 Coronavirus (PCR) Not Detected (Not Detectd) 08/15/21 14:43 08/16/21 11:29 IDENTIFYING DATA: Patient is a 60-year-old male, who currently lives with his and 1 daughter in an apartment. He collects SSD. HPI: Patient presented to the hospital yesterday for a psychiatric evaluation. Patient claims that he has been having increase in his depression and suicidal ideation lately when he came into the ER. He has stated that he took 3 Suboxone films and overdose attempt and also had a handful of Valium to overdose on however his stopped him. He states that he's been having a lot of stress lately. Patient was admitted to the mental health unit on a petition and certificate. The decision was filled out by the EPS nurse. Patient was seen by group underwriter today and was agreeable to speak in the office. Patient is attempting to cooperate and appeared to have a depressed affect. He states that he was feeling depressed" stressed out" lately. His UDS was positive for methamphetamine and THC. Patient claims that "a lot of stuff has been happening to me" and claims that his is now . He states that "have to leave her for a bit" and states that he could be in [facility] for more than a year. He states that his sentencing is coming up in August and he is being charged for drug related charges. He claims that he has been also dealing with health and pain issues. He claims that he did try to kill himself and he wanted to "go to sleep and not wake up". He claims that he has been having fair sleep however poor appetite. He is endorsing depression at this time and anxiety. Patient denies any suicidal or homicidal ideations intent or plan. At this time patient denies any auditory or visual hallucinations. Patient denies any flight of ideas racing thoughts and increased in goal directed behavior. Patient admits to using cigarettes daily, marijuana daily, alcohol occasionally, no other recreational drug use. PAST PSYCHIATRIC HISTORY: Patient states that he has a history of depression and anxiety. Patient is currently on Cymbalta 60 mg daily for mood. Patient denies any previous psychiatric hospitalizations. Patient claims that he goes to [facility] to see a counselor named Michelle. Patient denies any history of suicide attempts in the past. Past Medical History: Hypertension Additional Past Medical History / Comment(s): chronic back pain ALLERGIES: as per EMR CHEMICAL DEPENDENCY HISTORY: as per HPI FAMILY PSYCHIATRIC/SUBSTANCE USE HISTORY: denies SOCIAL HISTORY: Patient was born and raised in [place] and moved to [place] when he was 14 years old. He states that he did some college and high school was completed. 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 He states that now he is on SSD and currently lives with his and 1 daughter in an apartment. He states that he has been to [facility] twice in the past one for drug-related charges and received a felony and also second one for carrying a gun and having a felony. MENTAL STATUS EXAM: General Appearance: Patient appears to be stated age is alert, directable, and attempts to cooperate. Patient appears to have fair hygiene and grooming. Behavior: Patient is seated without any agitated behavior. Constricted at times. Speech: Patient's speech is fluent and nonpressured. [place] Mood/Affect: Patient reports their mood is depressed and anxious, affect is congruent and constricted. Suicidality/Homicidality: Patient denies having any homicidal ideation intent or plan. Denies any suicidal ideations intent or plan Perceptions: Patient denies any visual hallucinations and denies any auditory hallucinations Though content/process: There is no evidence of any delusional thought content and thought process is linear and goal-directed. Catastrophizing. Memory and concentration: AOX3, grossly intact for the purposes of this session. Can spell "WORLD" backwards Judgment and insight: poor STRENGTHS/WEAKNESSES: strength is that patient is resilient. Weakness is that patient has poor judgment and is impulsive INTELLECT: average IMPRESSIONS: Major depressive disorder, recurrent, severe Overdose of medications Generalized anxiety disorder Cannabis use disorder mild Nicotine dependence PLAN: -Patient is admitted under voluntary status to MHU for stabilization of psychiatric symptoms and safety. Patient has signed adult voluntary form and medication consent and is placed in patient's chart. -Medications : Will start patient on Cymbalta and increased her dose of 90 mg daily at bedtime for mood/anxiety/pain. I added trazodone 50 mg daily at bedtime when necessary for sleep. -Ativan and Haldol PRN for agitation/aggression -Patient was counselled on substance abuse and desired to cut back on use -Patient was informed of the risks, benefits and side effects of the medication and patient verbally consented to taking the medications. Patient signed med consent form and was placed in chart. -Internal Medicine consult to perform medical evaluation and physical. -NRT - nicotine patch -SW on board for discharge planning. Encourage patient to participate in groups to work on coping skills. 08/16/21 12:58 Patient Condition at Discharge: Stable Plan - Discharge Summary Discharge Rx Participant: Yes New Discharge Prescriptions: New DULoxetine HCL [Cymbalta] 90 mg PO HS 30 Days cap traZODone HCL [Desyrel] 50 mg PO HS PRN 30 Days tab PRN Reason: Insomnia Nicotine 14Mg/24Hr Patch [Habitrol] 1 patch TRANSDERM DAILY 14 Days patch Continue Gabapentin [Neurontin] 400 mg PO TID Valsartan/Hydrochlorothiazide [Valsartan-Hctz 160-25 mg Tab] 1 tab PO DAILY Pantoprazole [Protonix] 40 mg PO DAILY 14 Days tab atenoloL [Tenormin] 25 mg PO DAILY 14 Days tab Zinc Gluconate [Zinc] 50 mg PO DAILY 14 Days tab Meloxicam 15 mg PO DAILY Atorvastatin [Lipitor] 10 mg PO DAILY Cholecalciferol [Vitamin D3 (25 Mcg = 1000 Iu)] 50 mcg PO DAILY Ascorbic Acid [Vitamin C] 500 mg PO DAILY Tadalafil [Cialis] 20 mg PO DAILY 14 Days tab methocarbamoL [Methocarbamol] 500 mg PO BID 14 Days tab amLODIPine [Norvasc] 10 mg PO DAILY 14 Days tab Discontinued DULoxetine HCL [Cymbalta] 60 mg PO DAILY Discharge Medication List Ascorbic Acid [Vitamin C] 500 mg PO DAILY 08/15/21 [History] Atorvastatin [Lipitor] 10 mg PO DAILY 08/15/21 [History] Cholecalciferol [Vitamin D3 (25 Mcg = 1000 Iu)] 50 mcg PO DAILY 08/15/21 [History] Gabapentin [Neurontin] 400 mg PO TID 08/15/21 [History] Meloxicam 15 mg PO DAILY 08/15/21 [History] Valsartan/Hydrochlorothiazide [Valsartan-Hctz 160-25 mg Tab] 1 tab PO DAILY 08/15/21 [History] DULoxetine HCL [Cymbalta] 90 mg PO HS 30 Days cap 08/17/21 [Rx] Nicotine 14Mg/24Hr Patch [Habitrol] 1 patch TRANSDERM DAILY 14 Days patch 08/17/21 [Rx] Pantoprazole [Protonix] 40 mg PO DAILY 14 Days tab 08/17/21 [Rx] Tadalafil [Cialis] 20 mg PO DAILY 14 Days tab 08/17/21 [Rx] Zinc Gluconate [Zinc] 50 mg PO DAILY 14 Days tab 08/17/21 [Rx] amLODIPine [Norvasc] 10 mg PO DAILY 14 Days tab 08/17/21 [Rx] atenoloL [Tenormin] 25 mg PO DAILY 14 Days tab 08/17/21 [Rx] methocarbamoL [Methocarbamol] 500 mg PO BID 14 Days tab 08/17/21 [Rx] traZODone HCL [Desyrel] 50 mg PO HS PRN 30 Days tab 08/17/21 [Rx] Follow up Appointment(s)/Referral(s): [facility] [Outside] - 08/22/21 9:00 am (08-22-21 @ 9:00 with Michelle Porter 08-23-21 @ 12:30 with BREA Alvares) Karthikeyan Hernandez MD [Primary Care Provider] - 1-2 days Patient Instructions/Handouts: How to Stop Smoking (DC), Depression (DC) Activity/Diet/Wound Care/Special Instructions: Activity and diet as tolerated. Avoid the use of street drugs and alcohol. Take all medications as prescribed. When you are in need of refills on your medications please contact your medical provider and/or outpatient psychiatrist to have this done. Please go to scheduled outpatient appointment for aftercare treatment. If symptoms return or become worse, call the crisis line at and/or go to the nearest emergency room for evaluation Discharge Disposition: HOME SELF-CARE
== END 2021-08-18 12:02 | disposition home or self-care (01) | DRG 885 ==
LOC: EC 05:48 → 3MHU 18:23
PROVIDERS: ADMIT Psychiatry & Neurology Psychiatry; ATTEND Psychiatry & Neurology Psychiatry
DX: F33.2 Major depressive disorder, recurrent severe without psychotic features (principal); F12.90 Cannabis use, unspecified, uncomplicated; F17.210 Nicotine dependence, cigarettes, uncomplicated; F41.1 Generalized anxiety disorder; I10 Essential (primary) hypertension; T42.4X2A Poisoning by benzodiazepines, intentional self-harm, initial encounter; Z79.1 Long term (current) use of non-steroidal anti-inflammatories (NSAID); Z79.899 Other long term (current) drug therapy; Z20.822 Contact with and (suspected) exposure to COVID-19
CPT/HCPCS: 36415; 80053; 80061; 80306; 80320; 81001; 82248; 83036; 84443; 85025; 87635; 99285